=== PATIENT | female | born 1965 | race Caucasian/White ===

== ENCOUNTER → 2017-01-04 | Outpatient (CLI) | payer OTHER ==
[~2017-01-04] MED LIST: AMLO-110 PO; ASPCH81X PO; ATOR-54 PO; BND25 PO; CHOL20007 PO; DILT120C68 PO; DIPH25TA24 PO; EPP3/2 IM; ERGO500037 PO; FLM4 PO; HYDR-3419 PO; HYDR-5688 PO; HYDR12.55 PO; OXYC-57 PO; POTA1TAB97 PO; RANI150T3 PO; VITAMIN D2 PO; ZNTT/150 PO
[2017-01-04 18:54] LABS: BLOOD UREA NITROGEN 19 mg/dl (7-18); BUN/CREATININE RATIO 20.2 (10-20); CALCIUM 8.5 mg/dl (8.5-10.1); CARBON DIOXIDE 27 mmol/L (21-32); CHLORIDE 104 mmol/L (98-107); CREATININE 0.96 mg/dl (0.60-1.20); GLUCOSE 135 mg/dl (70-99); SODIUM 142 mmol/L (136-145)
[2017-01-04 18:55] LABS: PHOSPHORUS 2.6 mg/dl (2.5-4.9); URIC ACID 5.1 mg/dl (2.6-7.2)
== END | disposition home or self-care (01) ==
LOC: C.LABPVFM 15:27
PROVIDERS: ATTEND Internal Medicine Nephrology
DX: N20.0 Calculus of kidney (principal)

== ENCOUNTER → 2017-03-02 | Outpatient (CLI) | payer OTHER ==
[~2017-03-02] MED LIST changes: -BND25 PO; +DIPH25CA5 PO
[2017-03-02 18:40] LABS: BLOOD UREA NITROGEN 19 mg/dl (7-18); BUN/CREATININE RATIO 25.2 (10-20); CARBON DIOXIDE 33 mmol/L (21-32); CHLORIDE 101 mmol/L (98-107); CREATININE 0.75 mg/dl (0.60-1.20); GLUCOSE 104 mg/dl (70-99); MAGNESIUM 2.2 mg/dl (1.8-2.4); POTASSIUM 3.1 mmol/L (3.5-5.1); SODIUM 140 mmol/L (136-145)
[2017-03-02 18:44] LABS: CALCIUM 9.3 mg/dl (8.5-10.1)
== END | disposition home or self-care (01) ==
LOC: C.LABPVFM 11:04
PROVIDERS: ATTEND Nurse Practitioner Family
DX: E87.6 Hypokalemia (principal); R25.2 Cramp and spasm

== ENCOUNTER → 2017-05-17 | Outpatient (CLI) | payer OTHER ==
[~2017-05-17] MED LIST changes: +BND25 PO; -DIPH25CA5 PO
[2017-05-17 17:42] LABS: BLOOD UREA NITROGEN 17 mg/dl (7-18); BUN/CREATININE RATIO 16.8 (10-20); CALCIUM 8.8 mg/dl (8.5-10.1); CARBON DIOXIDE 30 mmol/L (21-32); CHLORIDE 105 mmol/L (98-107); GLUCOSE 82 mg/dl (70-99); PHOSPHORUS 2.8 mg/dl (2.5-4.9); POTASSIUM 2.9 mmol/L (3.5-5.1); SODIUM 141 mmol/L (136-145)
== END | disposition home or self-care (01) ==
LOC: C.LABPVFM 15:24
PROVIDERS: ATTEND Internal Medicine Nephrology
DX: E55.9 Vitamin D deficiency, unspecified (principal); Q61.3 Polycystic kidney, unspecified

== ENCOUNTER → 2017-05-29 | Outpatient (CLI) | payer OTHER | END | disposition home or self-care (01) | LOC: C.LABSPEC 16:59 | PROVIDERS: ATTEND Urology | DX: N39.3 Stress incontinence (female) (male) (principal) ==

== ENCOUNTER → 2017-05-29 | Outpatient (CLI) | payer OTHER ==
--- NOTE | 2017-05-29 16:02 | DIAGNOSTIC IMAGING REPORT ---
KUB CLINICAL HISTORY: Stress incontinence. COMPARISON STUDY: CT of the abdomen and pelvis April 26, 2016 and May 22, 2017. FINDINGS: A 9 mm calcification within the midpole of the right kidney could reflect a calculus or cortical calcification. This is unchanged. There is a 7 mm left ureteropelvic junction calculus which is similar in position to CT of May 22, 2017. There has been slight migration of a 6 mm proximal left ureteral calculus. Pelvic calcifications likely reflect phleboliths although distal ureteral calculi could appear similar. There are several punctate bilateral renal calculi. IMPRESSION: 1. No change in position of a 7 mm left ureteropelvic junction calculus. Slight migration of a 6 cm proximal left ureteral calculus since CT of May 22, 2017. 2. 9 mm right renal calcification could reflect a calculus or cortical calcification. Bilateral nephrolithiasis. 3. Pelvic calcifications which likely reflect phleboliths. Electronically signed by: Sheldon Gunn M.D. 05/29/2017 4:00 PM Dictated Date/Time: 05/29/2017 3:57 PM
== END | disposition home or self-care (01) ==
LOC: C.RAD 14:52
PROVIDERS: ATTEND Urology
DX: N39.3 Stress incontinence (female) (male) (principal); N20.0 Calculus of kidney; N20.1 Calculus of ureter

== ENCOUNTER → 2017-06-01 | Outpatient (CLI) | payer OTHER ==
[~2017-06-01] MED LIST changes: -DILT120C68 PO; -RANI150T3 PO
--- NOTE | 2017-06-01 14:42 | DIAGNOSTIC IMAGING REPORT ---
CHEST 2 VIEWS ROUTINE CLINICAL HISTORY: 51 years-old Female presenting with nephrolithiasis. TECHNIQUE: PA and lateral views of the chest were obtained. COMPARISON: None. FINDINGS: Cardiomediastinal silhouette normal. Lungs and pleural spaces clear. Osseous structures and upper abdomen normal. IMPRESSION: 1. No acute cardiopulmonary disease. Electronically signed by: Gunnar Suarez M.D. 06/01/2017 2:41 PM Dictated Date/Time: 06/01/2017 2:40 PM
--- NOTE | 2017-06-01 14:45 | DIAGNOSTIC IMAGING REPORT ---
KUB CLINICAL HISTORY: 51 years-old Female presenting with nephrolithiasis. TECHNIQUE: Single supine view of the abdomen was obtained. COMPARISON: 05/29/[address] from 05/22/2017. FINDINGS: Multiple calcifications project over the bilateral kidneys, the largest on the right measuring 9 mm and on the left measuring 3 mm. Additional calcifications along the course of the left ureter. Multiple phleboliths also noted. Nonobstructive bowel gas pattern. Osseous structures normal. IMPRESSION: 1. Bilateral nephrolithiasis with left ureteral calculi. This is similar to recent CT. Electronically signed by: Gunnar Suarez M.D. 06/01/2017 2:44 PM Dictated Date/Time: 06/01/2017 2:41 PM
== END | disposition home or self-care (01) ==
LOC: C.RAD1850 14:21
PROVIDERS: ATTEND Urology
DX: N39.3 Stress incontinence (female) (male) (principal); N20.0 Calculus of kidney

== ENCOUNTER → 2017-06-09 | Day surgery (SDC) | payer OTHER ==
[2017-05-31 14:53] VITALS: Ht 154.9 cm; Wt 90.9 kg
[~2017-06-09] VITALS: Ht 154.9 cm; Wt 90.9 kg
[~2017-06-09] MED LIST changes: +ATROPINE SULFATE 0.1 MG/ML 5ML SYR IV PRN; +CIPROFLOXACIN 400MG / D5W IV SCH; +DEXAMETHASONE SOD INJ 4 MG/ML VIAL ONE; +EpHEDrine SULFATE INJ 50 MG/ML AMP IV PRN; +FENTANYL CITRATE INJ 50 MCG/1 ML 2 ML VIAL ONE; +FLUMAZENIL 0.1 MG/1 ML 10 ML VIAL IV PRN; +HYDROmorphone INJ 2 MG/ML SYR/VIAL IV PRN; +LABETALOL HCL IV 5 MG/ML 20ML IV PRN; +LACTATED RINGER'S 1000ML 1,000 ML IV SCH; +LIDOCAINE HCL 2% 2 ML VIAL (20MG/ML) ONE; +MEPERIDINE HCL 25 MG/ML CARP IV PRN; +MIDAZOLAM HCL 1 MG/ML 2ML VIAL ONE; +NALOXONE HCL 0.4 MG/1 ML VIAL/CARP IV PRN; +ONDANSETRON INJ 2 MG/ML 2 ML VIAL IV PRN; +ONDANSETRON INJ 2 MG/ML 2 ML VIAL ONE; +OXYCODONE/ACETAMINOPHEN 5-325 TAB PO PRN; +PHENYLEPHRINE 100MCG/ML 5ML SYR IV PRN; +PROPOFOL IV EMULSION 10 MG/ML 20 ML VIAL IV ONE
--- NOTE | 2017-06-09 09:37 | DIAGNOSTIC IMAGING REPORT ---
KUB CLINICAL HISTORY: 51 years-old Female presenting with STONES. TECHNIQUE: Single supine view of the abdomen was obtained. COMPARISON: 06/01/2017. FINDINGS: Stool mildly degrades evaluation for renal calculus. Previously noted calculus at the interpolar to lower pole of the left kidney unchanged. Dominant right lower pole calculus also unchanged. Previously noted obstructing calculus at the left ureteropelvic junction noted at the L3-[address] from 05/22/2017 remains at L4-5 unchanged from most recent radiograph. Multiple pelvic phleboliths again noted. Nonobstructive bowel gas pattern. IMPRESSION: 1. No change in position of the left ureteral calculus and bilateral renal calculi from most recent radiograph on 06/01/2017. Electronically signed by: Gunnar Suarez M.D. 06/09/2017 9:36 AM Dictated Date/Time: 06/09/2017 9:32 AM
--- NOTE | 2017-06-09 11:32 | History & Physical Bridge Note ---
H&P Re-Evaluation Bridge Note: I have examined the patient, reviewed the History & Physical and in the interval since the performance of the History & Physical I have noted the following changes of clinical significance: No changes noted
--- NOTE | 2017-06-09 12:05 | [facility] Operative Report ---
Operative Report Operative Date Jun 09, 2017. Pre-Operative Diagnosis LEFT URETERAL STONE Post-Operative Diagnosis SAME Procedure(s) Performed LEFT ESWL Surgeon LEANN Steel Pourer Helper Surgeon(s) NONE Estimated Blood Loss NONE Findings LEFT URETERAL STONE Specimens NONE Drains NONE Anesthesia GENERAL Complication(s) None Disposition Recovery Room / PACU Indications LEFT URETERAL STONE FOR ESWL Description of Procedure Patient was identified in the preoperative holding area, appropriate informed consent was reviewed and completed and the patient was transported to the operating suite. Upon arrival appropriate preoperative antibiotics were administered and general anesthesia induced. The patient was placed in supine position and the stone was localized under fluoroscopy. A total of [__3000_] shocks were delivered to the stone. There appeared to be good fragmentation of the stone. Details of this procedure can be found on the [facility] information sheet. At the conclusion of the case the patient was extubated and taken to the PACU in stable condition. There were no complications. I attest to the content of the Intraoperative Record and any orders documented therein. Any exceptions are noted below.
--- NOTE | 2017-06-09 12:07 | Discharge Instructions-SurgCtr ---
Discharge Instructions Date of Service Jun 09, 2017. Visit Reason for Visit: Stones Discharge Discharge Diagnosis / Problem: LEFT STONE Discharge Goals Goal(s): Therapeutic intervention Medications Stopped Medications Name(s): asa 81mg, last dose over 1 week ago Activity Recommendations Activity Limitations: resume your previous activity (TAKE IT EASY TODAY) Anesthesia . Post Anesthesia Instructions: If you have had General Anesthesia or IV Sedation: * Do not drive today. * Resume driving when surgeon permits. * Do not make important decisions or sign legal documents today. * Call surgeon for: 1. Temperature elevations greater than 101 degrees F. 2. Uncontrollable pain. 3. Excessive bleeding. 4. Persistent nausea and vomiting. 5. Medication intolerance (nausea, vomiting or rash). * For nausea and vomiting use only clear liquids such as: tea, soda, bouillon until nausea subsides, then gradually increase diet as tolerated. * If you have any concerns or questions, call your surgeon's office. If physician is unavailable and it is an emergency, call 911 or go to the nearest emergency room. . Instructions / Follow-Up Instructions / Follow-Up MEDICATIONS: Resume previous medications unless instructed otherwise by your surgeon. Resume pre-ESWL medication except for aspirin, coumadin or other blood thinners. __ Toradol 10 mg every 6 hours for initial pain. __ Lortab 5 mg 1-2 every 4 hours for pain. _X_ Percocet 5 mg 1-2 every 4 hours for pain. __ Macrodantin 50 mg x 3 a day. __ Flomax 1 tab daily one half (1/2) hour after supper. SPECIAL CARE INSTRUCTIONS: 1. Get KUB (x-ray) _X_ day before or day of office visit and bring x-ray to office __ get x-ray 2 days before and tell office you are getting x-rays when you call for the appointment. 2. Strain ALL urine. 3. Please call if you have a fever, chills, severe pain, or constant dribbling of urine. 4. Office phone number . FOLLOW UP VISIT: Please call the office to schedule a follow-up appointment at . Diet Recommendations Home Diet: resume previous diet Procedures Procedures Performed: LEFT ESWL Pending Studies Studies pending at discharge: no Medical Emergencies . Who to Call and When: Medical Emergencies: If at any time you feel your situation is an emergency, please call 911 immediately. . Non-Emergent Contact Non-Emergency issues call your: Urologist Call Non-Emergent contact if: temperature is above 101.5, your pain is not controlled . . "Provider Documentation" section prepared by Srinivasa Ayala. . [place] Drug Monitoring Program Search Results: patient reviewed within database
[2017-06-09] MEDS: FENTANYL CITRATE INJ 50 MCG/1 ML 2 ML VIAL IV PRN ×3 (13:03→13:32)
[2017-06-09 13:54] VITALS: TEMP 36.6
--- NOTE | 2017-06-09 14:11 | Anesthesia Progress Nt - [facility] ---
Anesthesia Post Op Note Date & Time Jun 09, 2017 at 14:11 Vital Signs Pain Intensity: 4 Vital Signs Past 12 Hours Date Time Temp Pulse Resp B/P (MAP) Pulse Ox O2 Delivery O2 Flow Rate FiO2 06/09/17 13:49 65 21 97 06/09/17 13:49 65 21 06/09/17 13:48 36.6 65 20 133/83 96 Room Air 06/09/17 13:46 133/83 06/09/17 13:44 70 16 06/09/17 13:44 72 16 98 06/09/17 13:41 124/77 06/09/17 13:39 68 13 06/09/17 13:39 67 13 98 06/09/17 13:36 130/79 06/09/17 13:34 63 11 99 06/09/17 13:34 63 11 06/09/17 13:31 130/78 06/09/17 13:29 64 7 06/09/17 13:29 63 7 99 06/09/17 13:26 113/78 06/09/17 13:24 65 12 06/09/17 13:24 65 12 99 06/09/17 13:21 118/83 06/09/17 13:19 64 18 100 06/09/17 13:19 64 18 06/09/17 13:16 112/77 06/09/17 13:14 64 12 06/09/17 13:14 64 12 100 06/09/17 13:11 113/74 06/09/17 13:09 63 13 06/09/17 13:09 63 13 99 06/09/17 13:06 127/81 06/09/17 13:04 65 7 06/09/17 13:04 64 7 99 06/09/17 13:01 118/86 06/09/17 12:59 66 17 99 06/09/17 12:59 66 17 06/09/17 12:56 144/85 06/09/17 12:54 68 12 100 06/09/17 12:54 68 12 06/09/17 12:51 135/79 06/09/17 12:50 138/121 06/09/17 12:49 72 100 06/09/17 12:49 36.4 72 16 135/79 99 Mask 4 06/09/17 12:49 72 06/09/17 10:02 36.6 67 16 151/101 (594) 97 Room Air Notes Mental Status: alert / awake / arousable, participated in evaluation Pt Amnestic to Procedure: Yes Nausea / Vomiting: adequately controlled Pain: adequately controlled Airway Patency, RR, SpO2: stable & adequate BP & HR: stable & adequate Hydration State: stable & adequate Anesthetic Complications: no major complications apparent
[2017-06-09 14:23] VITALS: BP 141/91; PULSE 66; O2SAT 95
== END | disposition home or self-care (01) ==
LOC: X.SURG 09:47
PROVIDERS: ATTEND Urology
DX: N20.1 Calculus of ureter (principal); N13.5 Crossing vessel and stricture of ureter without hydronephrosis; N39.3 Stress incontinence (female) (male); I10 Essential (primary) hypertension; Z87.442 Personal history of urinary calculi; E66.9 Obesity, unspecified; Z90.710 Acquired absence of both cervix and uterus; Z90.89 Acquired absence of other organs; Z82.49 Family history of ischemic heart disease and other diseases of the circulatory system; Z80.3 Family history of malignant neoplasm of breast; Z87.891 Personal history of nicotine dependence; Z79.82 Long term (current) use of aspirin; G47.33 Obstructive sleep apnea (adult) (pediatric); K21.9 Gastro-esophageal reflux disease without esophagitis

== ENCOUNTER → 2017-06-20 | Outpatient (CLI) | payer OTHER ==
[~2017-06-20] MED LIST changes: -ATROPINE SULFATE 0.1 MG/ML 5ML SYR IV PRN; -CIPROFLOXACIN 400MG / D5W IV SCH; -DEXAMETHASONE SOD INJ 4 MG/ML VIAL ONE; -EpHEDrine SULFATE INJ 50 MG/ML AMP IV PRN; -FENTANYL CITRATE INJ 50 MCG/1 ML 2 ML VIAL ONE; -FLM4 PO; -FLUMAZENIL 0.1 MG/1 ML 10 ML VIAL IV PRN; -HYDROmorphone INJ 2 MG/ML SYR/VIAL IV PRN; -LABETALOL HCL IV 5 MG/ML 20ML IV PRN; -LACTATED RINGER'S 1000ML 1,000 ML IV SCH; -LIDOCAINE HCL 2% 2 ML VIAL (20MG/ML) ONE; -MEPERIDINE HCL 25 MG/ML CARP IV PRN; -MIDAZOLAM HCL 1 MG/ML 2ML VIAL ONE; -NALOXONE HCL 0.4 MG/1 ML VIAL/CARP IV PRN; -ONDANSETRON INJ 2 MG/ML 2 ML VIAL IV PRN; -ONDANSETRON INJ 2 MG/ML 2 ML VIAL ONE; -OXYCODONE/ACETAMINOPHEN 5-325 TAB PO PRN; -PHENYLEPHRINE 100MCG/ML 5ML SYR IV PRN; -PROPOFOL IV EMULSION 10 MG/ML 20 ML VIAL IV ONE
--- NOTE | 2017-06-20 10:35 | DIAGNOSTIC IMAGING REPORT ---
KUB HISTORY: N39.3 Stress incontinence, [id number] COMPARISON: KUB 06/01/2017. FINDINGS: The bowel gas pattern is unremarkable. There are no dilated loops of small bowel to suggest an obstruction. The mid left ureteral stone is no longer visualized and may have passed in the interval. Bilateral renal calculi, unchanged. Dominant stone within the right kidney measures 9 mm. Calcifications in the deep pelvis remain stable and likely represent phleboliths. Oval-shaped density overlying the upper pole of the right kidney likely represents a pill. No pneumoperitoneum or pneumatosis. IMPRESSION: 1. Stable bilateral nephrolithiasis. 2. The left ureteral stone seen on the prior study is no longer visualized and may have passed in the interval. Electronically signed by: Mian Birmingham M.D. 06/20/2017 10:34 AM Dictated Date/Time: 06/20/2017 10:31 AM
== END | disposition home or self-care (01) ==
LOC: C.RAD1850 09:58
PROVIDERS: ATTEND Urology
DX: N20.0 Calculus of kidney (principal)

== ENCOUNTER → 2017-07-05 | Outpatient (CLI) | payer OTHER | END | disposition home or self-care (01) | LOC: C.LABSPEC 10:52 | PROVIDERS: ATTEND Urology | DX: N20.0 Calculus of kidney (principal) ==

== ENCOUNTER 2017-07-13 14:50 | Emergency (ER) | payer OTHER ==
[~2017-07-13] VITALS: Ht 154.9 cm; Wt 92.4 kg
[~2017-07-13 14:50] MED LIST changes: -BND25 PO; -CHOL20007 PO; -HYDR-3419 PO; -HYDR-5688 PO; -OXYC-57 PO; -VITAMIN D2 PO
[2017-07-13 14:53] VITALS: TEMP 36.8; Ht 154.9 cm; Wt 92.4 kg
[2017-07-13] MEDS ORDERED: KETOROLAC TROMETHAMINE 30 MG/ML VIAL IV STA (15:12)
[2017-07-13] MEDS ORDERED: SODIUM CHLORIDE 0.9% 1000ML 1,000 ML IV ONE (15:15)
[2017-07-13 15:50] LABS: BASO % 0.2 %; BASO ABS # 0.02 K/uL (0-0.2); COMPLETE YES; EOS % 0.7 %; HEMATOCRIT 36.7 % (37-47); IG% 0.1 %; LYMPH % 15.9 %; LYMPH ABS # 1.28 K/uL (1.2-3.4); MEAN CELL VOLUME 83.8 fL (80-100); MEAN CORPUSCULAR HEMOGLOBIN 29.5 pg (25-34); MEAN CORPUSCULAR HGB CONC 35.1 g/dl (32-36); MEAN PLATELET VOLUME 9.4 fL (7.4-10.4); MONO % 10.2 %; NEUT % 72.9 %; PLATELET COUNT 193 K/uL (130-400); RED BLOOD COUNT 4.38 M/uL (4.2-5.4); WHITE BLOOD COUNT 8.03 K/uL (4.8-10.8)
--- NOTE | 2017-07-13 16:03 | DIAGNOSTIC IMAGING REPORT ---
RIGHT WRIST MIN 3 VIEWS ROUTINE HISTORY: 51 years-old Female right wrist pain. no known trauma Right COMPARISON: None available TECHNIQUE: 3 views of the right wrist FINDINGS: 1.1 x 0.6 cm ossification is noted along the medial volar aspect of the pisiform with mild associated soft tissue swelling. Additionally, there is a 2 mm punctate corticated ossification adjacent to the volar aspect of the distal radius which may reflect accessory ossicle or remote avulsion injury. Mild degenerative changes are noted about the wrist and within the first carpometacarpal joint. IMPRESSION: 1.1 x 0.6 cm calcific density focus adjacent to the medial volar aspect of the pisiform is noted with associated soft tissue swelling, suspicious for a chip fracture or avulsion injury. Correlate with point tenderness. The above report was generated using voice recognition software. It may contain grammatical, syntax or spelling errors. Electronically signed by: Angel Luis Couch M.D. 07/13/2017 4:01 PM Dictated Date/Time: 07/13/2017 3:58 PM
[2017-07-13 16:17] LABS: BUN/CREATININE RATIO 13.9 (10-20); CALCIUM 8.7 mg/dl (8.5-10.1); CREATININE 0.94 mg/dl (0.60-1.20); POTASSIUM 3.1 mmol/L (3.5-5.1); URIC ACID 4.9 mg/dl (2.6-7.2)
[2017-07-13 16:20] LABS: ALB/GLOB RATIO 1.1 (0.9-2)
[2017-07-13 16:44] LABS: LYME DISEASE AB IGG NEG (NEG); LYME DISEASE AB IGM NEG (NEG)
[2017-07-13] MEDS ORDERED: HYDR-5688 PO (17:07)
[2017-07-13 17:33] VITALS: BP 147/91; PULSE 81; O2SAT 96
--- NOTE | 2017-07-14 13:49 | EMERGENCY ROOM VISIT NOTE ---
History First contact with patient: 14:59 Chief Complaint: HAND PAIN/INJURY Stated Complaint: GOUT History of Present Illness The patient is a 51 year old female who presents to the Emergency Room with complaints of right wrist pain for the past one day. The patient does not recall injury or trauma. She does not have recent fall or change in activity. Her pain is primarily along the distal end of the ulna, and states that she essentially woke up with the discomfort. There is some redness in this area according to the patient, who also reports a history of gout in the past. She has not had fever or chills. She is able to open and close the hand. She was at work today, and her symptoms worsened with lifting and moving things, prompting her presentation to the department. She has not taken anything over- the-counter for her symptoms, and rates her pain as 7/10. Review of Systems More than 10 systems were reviewed and otherwise negative with the exception of history of present illness. Past Medical/Surgical History Medical Problems: (1) Allergic reaction (2) Calculus Of Ureter (3) Fibromyalgia (4) HTN (hypertension) (5) Migraine Family History No pertinent family history Social History Smoking Status: Former Smoker Drug Use: none Marital Status: Housing Status: lives with family Occupation Status: employed Current/Historical Medications Scheduled Amlodipine (Norvasc), 5 MG PO QAM Aspirin (Aspirin Chewable), 81 MG PO QAM Atorvastatin (Lipitor), 20 MG PO QPM Ergocalciferol (Vitamin D 02308 Unit), 50,000 UNIT PO WK Hydrochlorothiazide (Hydrochlorothiazide), 1 TAB PO QAM Potassium Chloride (K-Tab), 1 TAB PO BID Ranitidine (Zantac), 150 MG PO QAM Scheduled PRN Diphenhydramine Hcl (Benadryl), 25 MG PO UD PRN for ALLERGIC REACTION Epinephrine (Epipen), 0.3 MG IM UD PRN for ALLERGIC REACTION Hydrocodone/Acetaminophen 5MG/325MG (Hidalgo 5MG/325MG), 1 TABLET PO Q6 PRN for Pain Physical Exam Vital Signs Date Time Temp Pulse Resp B/P (MAP) Pulse Ox O2 Delivery O2 Flow Rate FiO2 07/13/17 17:33 81 20 147/91 96 07/13/17 16:30 78 18 158/97 96 Room Air 07/13/17 14:53 36.8 99 16 163/101 93 Room Air Pain Rating (0-10): 4.0 Physical Exam VITALS: Vitals are noted on the nurse's note and reviewed by myself. Vital signs stable. GENERAL: Well-developed, well-nourished, white female, who is in no acute distress and resting comfortably. Patient is cooperative with the examination. HEART: Regular rate and rhythm without murmurs gallops or rubs. LUNGS: Clear to auscultation bilaterally without wheezes, rales or rhonchi. No retractions or accessory muscle use. MUSCULOSKELETAL: Tenderness is appreciated along the distal end of the ulna at the wrist on the right. There is some mild ecchymosis in this region. The patient is able to flex and extend at the wrist. Supply Chain Assistant strength is 5/5. No snuffbox tenderness. No tenderness of the elbow. NEURO: Patient was alert and oriented to person place and time. CN II through XII grossly intact. Medical Decision & Procedures ER Provider Diagnostic Interpretation: RIGHT WRIST MIN 3 VIEWS ROUTINE HISTORY: 51 years-old Female right wrist pain. no known trauma Right COMPARISON: None available TECHNIQUE: 3 views of the right wrist FINDINGS: 1.1 x 0.6 cm ossification is noted along the medial volar aspect of the pisiform with mild associated soft tissue swelling. Additionally, there is a 2 mm punctate corticated ossification adjacent to the volar aspect of the distal radius which may reflect accessory ossicle or remote avulsion injury. Mild degenerative changes are noted about the wrist and within the first carpometacarpal joint. IMPRESSION: 1.1 x 0.6 cm calcific density focus adjacent to the medial volar aspect of the pisiform is noted with associated soft tissue swelling, suspicious for a chip fracture or avulsion injury. Correlate with point tenderness. Laboratory Results 07/13/17 15:30 Red Blood Count 4.38, Mean Corpuscular Volume 83.8, Mean Corpuscular Hemoglobin 29.5, Mean Corpuscular Hemoglobin Concent 35.1, Mean Platelet Volume 9.4, Neutrophils (%) (Auto) 72.9, Lymphocytes (%) (Auto) 15.9, Monocytes (%) (Auto) 10.2, Eosinophils (%) (Auto) 0.7, Basophils (%) (Auto) 0.2, Neutrophils # (Auto ) 5.84, Lymphocytes # (Auto) 1.28, Monocytes # (Auto) 0.82, Eosinophils # (Auto ) 0.06, Basophils # (Auto) 0.02 07/13/17 15:30 Test 07/13/17 15:30 White Blood Count 8.03 K/uL (4.8-10.8) Red Blood Count 4.38 M/uL (4.2-5.4) Hemoglobin 12.9 g/dL (12.0-16.0) Hematocrit 36.7 % (37-47) Mean Corpuscular Volume 83.8 fL (80-100) Mean Corpuscular Hemoglobin 29.5 pg (25-34) Mean Corpuscular Hemoglobin Concent 35.1 g/dl (32-36) Platelet Count 193 K/uL (130-400) Mean Platelet Volume 9.4 fL (7.4-10.4) Neutrophils (%) (Auto) 72.9 % Lymphocytes (%) (Auto) 15.9 % Monocytes (%) (Auto) 10.2 % Eosinophils (%) (Auto) 0.7 % Basophils (%) (Auto) 0.2 % Neutrophils # (Auto) 5.84 K/uL (1.4-6.5) Lymphocytes # (Auto) 1.28 K/uL (1.2-3.4) Monocytes # (Auto) 0.82 K/uL (0.11-0.59) Eosinophils # (Auto) 0.06 K/uL (0-0.5) Basophils # (Auto) 0.02 K/uL (0-0.2) RDW Standard Deviation 41.2 fL (36.4-46.3) RDW Coefficient of Variation 13.7 % (11.5-14.5) Immature Granulocyte % (Auto) 0.1 % Immature Granulocyte # (Auto) 0.01 K/uL (0.00-0.02) Anion Gap 5.0 mmol/L (3-11) Est Creatinine Clear Calc Drug Dose 71.7 ml/min Estimated GFR () 80.3 Estimated GFR (Non- 69.3 BUN/Creatinine Ratio 13.9 (10-20) Uric Acid 4.9 mg/dl (2.6-7.2) Calcium Level 8.7 mg/dl (8.5-10.1) Total Bilirubin 1.2 mg/dl (0.2-1) Aspartate Amino Transf (AST/SGOT) 15 U/L (15-37) Alanine Aminotransferase (ALT/SGPT) 28 U/L (12-78) Alkaline Phosphatase 89 U/L (45-117) Total Protein 6.8 gm/dl (6.4-8.2) Albumin 3.6 gm/dl (3.4-5.0) Globulin 3.2 gm/dl (2.5-4.0) Albumin/Globulin Ratio 1.1 (0.9-2) Lyme Disease IgG Antibody NEG (NEG) Lyme Disease IgM Antibody NEG (NEG) Medications Administered Medications (Trade) Dose Ordered Sig/Maricel Route Start Time Stop Time Status Last Admin Dose Admin Sodium Chloride 1,000 ml @ 999 mls/hr Q1H1M ONCE IV 07/13/17 15:15 07/13/17 16:15 DC 07/13/17 15:15 999 MLS/HR Ketorolac Tromethamine (Toradol Inj) 30 mg NOW STAT IV 07/13/17 15:12 07/13/17 15:14 DC 07/13/17 15:28 30 MG ED Course Physical exam and history were performed. Nursing notes, EMR, and Medication List were personally reviewed. Patient appears to have pain along the medial aspect of her right wrist. She does not recall injury or trauma and does report a history of gout. IV access was established and labs were obtained. She was hydrated and medicated as above. X-rays were performed. The patient does not have a significantly elevated white blood cell count, gross anemia, bandemia, or significant electrolyte imbalance. Lyme and uric acid are both negative. Her x-ray shows a possible pisiform fracture, and based on her examination this could be a true finding as she is tender roughly in this area. I'm not sure of the mechanism that may have caused this injury, and the patient herself is unsure herself. Regardless she will be placed in a splint and given instructions to follow with orthopedics. She was given further discharge instructions as below, and otherwise invited back to the ER with any new, worsening, or concerning symptoms. The chart was completed utilizing X[employer] Voice Recognition Software. Grammatical errors, random word insertions, pronoun errors, and incomplete sentences are an occasional consequence of this system due to software limitations, ambient noise, and hardware issues. Any formal questions or concerns about the content, text, or information contained within the body of this dictation should be directly addressed to the provider for clarification. . Medical Decision Differential diagnosis includes, but is not limited to: Sprain, strain, fracture , dislocation, subluxation, contusion, infection, gout, Lyme, and others Blood Pressure Screening Blood pressure disposition: Elevated BP felt to be situational Impression Primary Impression: Wrist pain, right Additional Impression: Closed fracture of pisiform Departure Information Dispostion Home / Self-Care Condition FAIR Prescriptions Hydrocodone/Acetaminophen 5MG/325MG (Hidalgo 5MG/325MG) Tab 1 TABLET PO Q6 Y for Pain, #12 TAB For Initial Treatment Prov: Kuldip Hernández PA-C 07/13/17 Referrals Todd Ariza MD Forms HOME CARE DOCUMENTATION FORM, IMPORTANT VISIT INFORMATION Patient Instructions My [facility] Additional Instructions You were seen and evaluated today on an emergency basis only. This is not a substitute for, or an effort to provide, complete comprehensive medical care. It is not possible to recognize and treat all injuries or illnesses in a single emergency department visit. For this reason it is recommended that you followup with [facility], Dr. Ariza's office, for ongoing care and evaluation. For baseline pain relief you may alternate ibuprofen and acetaminophen every 4 hours for pain control. Take 600 mg ibuprofen (Advil) and then 4 hours later take 1000 mg acetaminophen (Tylenol). Do not take more than 3000 mg acetaminophen in a single day. H[place]go (hydrocodone/acetaminophen) 5/325 mg ONE every 6 hours as needed for worsening breakthrough pain. Do not drink or drive on [place]. This medication will likely make you tired. Do not take Hidalgo and Tylenol at the same time as both contain acetaminophen. Hidalgo may cause constipation. You may wish to take an [id number] stool softener like Colace if this occurs. You are welcome to return to the emergency department anytime with new, worsening, or concerning symptoms. Problem Qualifiers
[2017-07-28] MEDS ORDERED: HYDR-3419 PO (08:42)
[2017-08-11] MEDS ORDERED: CHOL20007 PO (10:38)
[2017-08-11] MEDS ORDERED: BND25 PO (10:40)
[2017-08-18] MEDS ORDERED: OXYC-57 PO (09:23)
== END 2017-07-13 17:39 | disposition home or self-care (01) ==
LOC: C.EDB 14:52 → C.EDC 17:39
DX: M25.531 Pain in right wrist (principal); S62.164A Nondisplaced fracture of pisiform, right wrist, initial encounter for closed fracture; I10 Essential (primary) hypertension; M79.7 Fibromyalgia; Z79.82 Long term (current) use of aspirin; Z79.899 Other long term (current) drug therapy; Z87.442 Personal history of urinary calculi; Z87.898 Personal history of other specified conditions

== ENCOUNTER → 2017-07-18 | Outpatient (CLI) | payer OTHER ==
[~2017-07-18] MED LIST changes: +BND25 PO; +CHOL20007 PO; +HYDR-3419 PO; +HYDR-5688 PO; +OXYC-57 PO
[2017-07-18 16:28] LABS: BASO % 0.2 %; BASO ABS # 0.01 K/uL (0-0.2); COMPLETE YES; EOS % 2.6 %; HEMATOCRIT 36.3 % (37-47); IG% 0.2 %; LYMPH % 28.2 %; LYMPH ABS # 1.83 K/uL (1.2-3.4); MEAN CELL VOLUME 84.4 fL (80-100); MEAN CORPUSCULAR HEMOGLOBIN 29.5 pg (25-34); MEAN PLATELET VOLUME 9.1 fL (7.4-10.4); MONO % 7.7 %; NEUT % 61.1 %; PLATELET COUNT 200 K/uL (130-400)
[2017-07-18 16:53] LABS: BLOOD UREA NITROGEN 14 mg/dl (7-18); BUN/CREATININE RATIO 20.1 (10-20); CALCIUM 8.8 mg/dl (8.5-10.1); CARBON DIOXIDE 28 mmol/L (21-32); CHLORIDE 106 mmol/L (98-107); CREATININE 0.69 mg/dl (0.60-1.20); GLUCOSE 78 mg/dl (70-99); MAGNESIUM 2.2 mg/dl (1.8-2.4); PHOSPHORUS 3.1 mg/dl (2.5-4.9); POTASSIUM 3.6 mmol/L (3.5-5.1); SODIUM 140 mmol/L (136-145)
== END | disposition home or self-care (01) ==
LOC: C.LAB 15:58
PROVIDERS: ATTEND Urology
DX: Q61.3 Polycystic kidney, unspecified (principal); N20.0 Calculus of kidney

== ENCOUNTER → 2017-07-21 | Outpatient (CLI) | payer OTHER ==
[2017-07-23 20:04] LABS: REFERENCE QUEST TEST REPORT
[2017-07-26 02:22] LABS: CLAM CLASS 0; CLAM IGE <0.10 KU/L; CODFISH CLASS 0; CRAB CLASS 0; CRAB IGE <0.10 KU/L; LOBSTER CLASS 0; LOBSTER IGE <0.10 KU/L; SHRIMP CLASS 0; WHITEFISH CLASS 0; WHITEFISH IGE <0.10 kU/L (<0.35)
== END | disposition home or self-care (01) ==
LOC: C.LAB1850 09:07
PROVIDERS: ATTEND Internal Medicine Pulmonary Disease
DX: Z91.018 Allergy to other foods (principal)

== ENCOUNTER → 2017-07-27 | Outpatient (CLI) | payer OTHER ==
--- NOTE | 2017-07-27 17:18 | DIAGNOSTIC IMAGING REPORT ---
KUB CLINICAL HISTORY: N20.0 Nephrolithiasis COMPARISON STUDY: 06/20/2017 FINDINGS: There are bilateral renal calculi. The dominant 8 mm mid pole right renal calculus remains unchanged. There is no pathologic bowel dilatation. There are multiple pelvic basin calcifications, in similar orientation the prior study, therefore favoring phleboliths. There is a left upper quadrant calcification, possibly splenic. IMPRESSION: Bilateral nephrolithiasis similar to the preceding study Electronically signed by: Cody Santos M.D. 07/27/2017 5:17 PM Dictated Date/Time: 07/27/2017 5:16 PM
== END | disposition home or self-care (01) ==
LOC: C.RAD 17:00
PROVIDERS: ATTEND Urology
DX: N20.0 Calculus of kidney (principal)

== ENCOUNTER → 2017-07-28 | Day surgery (SDC) | payer OTHER ==
[2017-07-07 10:31] VITALS: Ht 154.9 cm; Wt 90.9 kg
[~2017-07-28] VITALS: Ht 154.9 cm; Wt 90.9 kg
[~2017-07-28] MED LIST changes: +ATROPINE SULFATE 0.1 MG/ML 5ML SYR IV PRN; +CIPROFLOXACIN 400MG / D5W IV SCH; +DEXAMETHASONE SOD INJ 4 MG/ML VIAL ONE; +EpHEDrine SULFATE INJ 50 MG/ML AMP IV PRN; +FENTANYL CITRATE INJ 50 MCG/1 ML 2 ML VIAL IV PRN; +FENTANYL CITRATE INJ 50 MCG/1 ML 2 ML VIAL ONE; +LACTATED RINGER'S 1000ML 1,000 ML IV SCH; +LIDOCAINE HCL 2% 2 ML VIAL (20MG/ML) ONE; +MIDAZOLAM HCL 1 MG/ML 2ML VIAL ONE; +ONDANSETRON INJ 2 MG/ML 2 ML VIAL ONE; +PROPOFOL IV EMULSION 10 MG/ML 20 ML VIAL IV ONE
--- NOTE | 2017-07-28 07:45 | [facility] Post Operative Brief Note ---
Immediate Operative Summary Operative Date Jul 28, 2017. Pre-Operative Diagnosis Right Renal Stone Post-Operative Diagnosis Same Procedure(s) Performed Right Extracorporeal Shock Wave Lithotripsy Surgeon Dr. Preson Costume Rental Clerk Surgeon(s) None Estimated Blood Loss 0 mL Findings stone appeared to spread out Specimens None
--- NOTE | 2017-07-28 07:58 | Discharge Instructions-SurgCtr ---
Discharge Instructions Date of Service Jul 28, 2017. Visit Reason for Visit: Stones Discharge Discharge Diagnosis / Problem: post op r eswl Discharge Goals Goal(s): Decrease discomfort Medications Stopped Medications Name(s): Was told to stop ASA - has been off ASA 81 MG for over one week. Activity Recommendations Activity Limitations: resume your previous activity Anesthesia . Post Anesthesia Instructions: If you have had General Anesthesia or IV Sedation: * Do not drive today. * Resume driving when surgeon permits. * Do not make important decisions or sign legal documents today. * Call surgeon for: 1. Temperature elevations greater than 101 degrees F. 2. Uncontrollable pain. 3. Excessive bleeding. 4. Persistent nausea and vomiting. 5. Medication intolerance (nausea, vomiting or rash). * For nausea and vomiting use only clear liquids such as: tea, soda, bouillon until nausea subsides, then gradually increase diet as tolerated. * If you have any concerns or questions, call your surgeon's office. If physician is unavailable and it is an emergency, call 911 or go to the nearest emergency room. . Diet Recommendations Home Diet: resume previous diet Procedures Procedures Performed: Right Extracorporeal Shock Wave Lithotripsy Pending Studies Studies pending at discharge: no Medical Emergencies . Who to Call and When: Medical Emergencies: If at any time you feel your situation is an emergency, please call 911 immediately. . Non-Emergent Contact Non-Emergency issues call your: Urologist . . "Provider Documentation" section prepared by Galileo Person. .
[2017-07-28 08:53] VITALS: BP 140/79; PULSE 78; TEMP 36.4; O2SAT 97
--- NOTE | 2017-07-28 08:58 | Anesthesia Progress Nt - [facility] ---
Anesthesia Post Op Note Date & Time Jul 28, 2017 at 08:58 Vital Signs Pain Intensity: 0 Vital Signs Past 12 Hours Date Time Temp Pulse Resp B/P (MAP) Pulse Ox O2 Delivery O2 Flow Rate FiO2 07/28/17 08:53 36.4 78 16 140/79 (99) 97 Room Air 07/28/17 08:27 60 16 157/96 (116) 96 Room Air 07/28/17 08:16 36.4 60 18 07/28/17 08:16 58 18 156/93 98 07/28/17 08:11 58 12 125/91 100 07/28/17 08:11 58 12 07/28/17 08:06 63 12 145/98 100 07/28/17 08:06 62 12 07/28/17 08:01 63 15 145/97 100 07/28/17 08:01 62 15 07/28/17 07:56 66 18 07/28/17 07:56 66 18 142/96 100 07/28/17 07:52 130/92 07/28/17 07:52 36.6 67 16 130/92 100 Mask 6 07/28/17 06:31 36.8 65 16 152/93 (112) 97 Room Air Notes Mental Status: alert / awake / arousable, participated in evaluation Pt Amnestic to Procedure: Yes Nausea / Vomiting: adequately controlled Pain: adequately controlled Airway Patency, RR, SpO2: stable & adequate BP & HR: stable & adequate Hydration State: stable & adequate Anesthetic Complications: no major complications apparent
--- NOTE | 2017-07-28 11:02 | OPERATIVE REPORT ---
DATE OF OPERATION: 07/28/2017 PREOPERATIVE DIAGNOSIS: Right renal stone. POSTOPERATIVE DIAGNOSIS: Same. PROCEDURE PERFORMED: Right ESWL. SURGEON: Dr. Person. ANESTHESIA: General. INDICATIONS: The patient is a 51-year-old female with a history of stone disease, has previously had ESWL who has a nonobstructing right renal stone here for elective ESWL. DESCRIPTION OF THE PROCEDURE: The patient had Venodyne stockings placed, was given antibiotics, taken to the operating room and placed in supine position and given general anesthesia. The stone was visualized in 2 gar, the patient received 2500 shocks, the majority at level 5. Stone did change appearance somewhat as it was sitting in the lower pole. At the end of the procedure, the patient was transferred to the recovery room in stable condition. I attest to the content of the Intraoperative Record and any orders documented therein. Any exception s are noted below.
== END | disposition home or self-care (01) ==
LOC: X.SURG 06:08
PROVIDERS: ATTEND Urology
DX: N20.0 Calculus of kidney (principal); M79.7 Fibromyalgia; E87.6 Hypokalemia; I10 Essential (primary) hypertension; R73.9 Hyperglycemia, unspecified; E66.9 Obesity, unspecified; Q61.3 Polycystic kidney, unspecified; N39.3 Stress incontinence (female) (male); E55.9 Vitamin D deficiency, unspecified; Z79.899 Other long term (current) drug therapy

== ENCOUNTER → 2017-08-08 | Outpatient (CLI) | payer OTHER ==
[~2017-08-08] MED LIST changes: -ATROPINE SULFATE 0.1 MG/ML 5ML SYR IV PRN; -CIPROFLOXACIN 400MG / D5W IV SCH; -DEXAMETHASONE SOD INJ 4 MG/ML VIAL ONE; -EpHEDrine SULFATE INJ 50 MG/ML AMP IV PRN; -FENTANYL CITRATE INJ 50 MCG/1 ML 2 ML VIAL IV PRN; -FENTANYL CITRATE INJ 50 MCG/1 ML 2 ML VIAL ONE; -LACTATED RINGER'S 1000ML 1,000 ML IV SCH; -LIDOCAINE HCL 2% 2 ML VIAL (20MG/ML) ONE; -MIDAZOLAM HCL 1 MG/ML 2ML VIAL ONE; -ONDANSETRON INJ 2 MG/ML 2 ML VIAL ONE; -PROPOFOL IV EMULSION 10 MG/ML 20 ML VIAL IV ONE
--- NOTE | 2017-08-08 13:17 | DIAGNOSTIC IMAGING REPORT ---
KUB HISTORY: N20.0 [id number] COMPARISON: KUB 07/27/2017. FINDINGS: The bowel gas pattern is unremarkable. There are no dilated loops of small bowel to suggest an obstruction. Stable bilateral nephrolithiasis. No ureteral calculi identified. Multiple calcifications in the deep pelvis are also remain unchanged and therefore likely represent phleboliths. No pneumoperitoneum or pneumatosis. IMPRESSION: Stable bilateral nephrolithiasis. Electronically signed by: Mian Birmingham M.D. 08/08/2017 1:16 PM Dictated Date/Time: 08/08/2017 1:15 PM
== END | disposition home or self-care (01) ==
LOC: C.RAD1850 12:50
PROVIDERS: ATTEND Urology
DX: N20.0 Calculus of kidney (principal)

== ENCOUNTER → 2017-08-08 | Outpatient (CLI) | payer OTHER ==
[2017-08-08 18:23] LABS: BASO % 0.3 %; BASO ABS # 0.02 K/uL (0-0.2); COMPLETE YES; EOS % 3.2 %; HEMATOCRIT 38.6 % (37-47); IG% 0.1 %; LYMPH % 27.3 %; MEAN CELL VOLUME 83.9 fL (80-100); MEAN CORPUSCULAR HEMOGLOBIN 29.1 pg (25-34); MEAN CORPUSCULAR HGB CONC 34.7 g/dl (32-36); MEAN PLATELET VOLUME 10.3 fL (7.4-10.4); MONO % 8.7 %; NEUT % 60.4 %; PLATELET COUNT 197 K/uL (130-400)
[2017-08-08 18:31] LABS: BLOOD UREA NITROGEN 19 mg/dl (7-18); BUN/CREATININE RATIO 24.1 (10-20); CALCIUM 9.2 mg/dl (8.5-10.1); CARBON DIOXIDE 26 mmol/L (21-32); CHLORIDE 105 mmol/L (98-107); CREATININE 0.78 mg/dl (0.60-1.20); GLUCOSE 82 mg/dl (70-99); POTASSIUM 3.5 mmol/L (3.5-5.1); SODIUM 140 mmol/L (136-145)
[2017-08-08 18:37] LABS: URINE APPEARANCE CLOUDY (CLEAR); URINE BILIRUBIN NEG (NEG); URINE COLOR YELLOW; URINE EPITHELIAL CELL AUTO >30 /lpf (0-5); URINE NITRITE NEG (NEG); URINE SPECIFIC GRAVITY 1.022 (1.000-1.030); UROBILINOGEN NEG (NEG)
[2017-08-08 19:25] LABS: MANUAL MICROSCOPIC REQUIRED? NO; REVIEW REQ? NO
== END | disposition home or self-care (01) ==
LOC: C.LAB 16:32
PROVIDERS: ATTEND Urology
DX: N20.0 Calculus of kidney (principal)

== ENCOUNTER → 2017-08-17 | Outpatient (CLI) | payer OTHER ==
[~2017-08-17] MED LIST changes: -DIPH25TA24 PO; -ERGO500037 PO; -HYDR-3419 PO; -HYDR-5688 PO
--- NOTE | 2017-08-17 19:42 | DIAGNOSTIC IMAGING REPORT ---
KUB HISTORY: Nephrolithiasis follow-up study. N20.0 Nephrolithiasis COMPARISON: KUB 08/08/2017 FINDINGS: The bowel gas pattern is non-obstructive. There is no organomegaly. Bilateral nephrolithiasis redemonstrated with largest calculus on the right measuring up to 1.2 cm. No definite ureteral calculi identified. Multiple calcifications of the pelvis appear unchanged suggesting phleboliths. No pneumoperitoneum or pneumatosis. No fracture. There are degenerative changes of the lower lumbar spine. IMPRESSION: Stable bilateral nephrolithiasis. No definite ureteral calculi identified. Electronically signed by: Angel Luis Couch M.D. 08/17/2017 7:41 PM Dictated Date/Time: 08/17/2017 7:39 PM
== END | disposition home or self-care (01) ==
LOC: C.RAD 18:47
PROVIDERS: ATTEND Urology
DX: N20.0 Calculus of kidney (principal)

== ENCOUNTER → 2017-08-18 | Day surgery (SDC) | payer OTHER ==
[2017-08-11 10:42] VITALS: Ht 154.9 cm; Wt 90.9 kg
[~2017-08-18] VITALS: Ht 154.9 cm; Wt 90.9 kg
[~2017-08-18] MED LIST changes: +ATROPINE SULFATE 0.1 MG/ML 5ML SYR IV PRN; +CIPROFLOXACIN 400MG / D5W IV SCH; +EpHEDrine SULFATE 50MG/5ML SYR ONE; +EpHEDrine SULFATE INJ 50 MG/ML AMP IV PRN; +FENTANYL CITRATE INJ 50 MCG/1 ML 2 ML VIAL IV PRN; +FENTANYL CITRATE INJ 50 MCG/1 ML 2 ML VIAL ONE; +LACTATED RINGER'S 1000ML 1,000 ML IV SCH; +LIDOCAINE HCL 2% 2 ML VIAL (20MG/ML) ONE; +MIDAZOLAM HCL 1 MG/ML 2ML VIAL ONE; +ONDANSETRON INJ 2 MG/ML 2 ML VIAL IV PRN; +ONDANSETRON INJ 2 MG/ML 2 ML VIAL ONE; +PROPOFOL IV EMULSION 10 MG/ML 20 ML VIAL IV ONE
--- NOTE | 2017-08-18 09:22 | [facility] Post Operative Brief Note ---
Immediate Operative Summary Operative Date Aug 18, 2017. Pre-Operative Diagnosis Right Renal Stone Post-Operative Diagnosis Same Procedure(s) Performed Right Extracorporeal Shock Wave Lithotripsy Surgeon Dr. 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
--- NOTE | 2017-08-18 09:24 | Discharge Instructions-SurgCtr ---
Discharge Instructions Date of Service Aug 18, 2017. Visit Reason for Visit: Stones Discharge Discharge Diagnosis / Problem: post op r eswl Discharge Goals Goal(s): Decrease discomfort, Improve function, Improve disease control Medications Stopped Medications Name(s): asa 81mg daily, last dose 08/08/17 Activity Recommendations Activity Limitations: resume your previous activity Anesthesia . Post Anesthesia Instructions: If you have had General Anesthesia or IV Sedation: * Do not drive today. * Resume driving when surgeon permits. * Do not make important decisions or sign legal documents today. * Call surgeon for: 1. Temperature elevations greater than 101 degrees F. 2. Uncontrollable pain. 3. Excessive bleeding. 4. Persistent nausea and vomiting. 5. Medication intolerance (nausea, vomiting or rash). * For nausea and vomiting use only clear liquids such as: tea, soda, bouillon until nausea subsides, then gradually increase diet as tolerated. * If you have any concerns or questions, call your surgeon's office. If physician is unavailable and it is an emergency, call 911 or go to the nearest emergency room. . Diet Recommendations Home Diet: resume previous diet Procedures Procedures Performed: Right Extracorporeal Shock Wave Lithotripsy Pending Studies Studies pending at discharge: no Medical Emergencies . Who to Call and When: Medical Emergencies: If at any time you feel your situation is an emergency, please call 911 immediately. . Non-Emergent Contact Non-Emergency issues call your: Urologist Call Non-Emergent contact if: temperature is above 101 . . "Provider Documentation" section prepared by Galileo Person. .
[2017-08-18 10:01] VITALS: TEMP 36.4
--- NOTE | 2017-08-18 10:19 | Anesthesia Progress Nt - [facility] ---
Anesthesia Post Op Note Date & Time Aug 18, 2017 at 10:19 Vital Signs Pain Intensity: 0 Vital Signs Past 12 Hours Date Time Temp Pulse Resp B/P (MAP) Pulse Ox O2 Delivery O2 Flow Rate FiO2 08/18/17 10:01 36.4 70 20 124/84 (97) 96 Room Air 08/18/17 09:53 36.3 71 16 109/68 95 Room Air 08/18/17 09:52 74 21 95 08/18/17 09:52 75 21 08/18/17 09:51 102/69 08/18/17 09:47 68 4 99 08/18/17 09:47 67 4 08/18/17 09:46 111/70 08/18/17 09:42 69 15 08/18/17 09:42 69 15 99 08/18/17 09:41 68 8 111/66 99 08/18/17 09:41 69 8 08/18/17 09:36 71 4 107/62 99 08/18/17 09:36 72 4 08/18/17 09:32 115/66 08/18/17 09:31 36.5 80 12 115/66 97 Mask 6 08/18/17 09:31 76 4 08/18/17 09:31 78 4 99 08/18/17 07:17 36.7 82 16 141/95 (110) 95 Room Air Notes Mental Status: alert / awake / arousable, participated in evaluation Pt Amnestic to Procedure: Yes Nausea / Vomiting: adequately controlled Pain: adequately controlled Airway Patency, RR, SpO2: stable & adequate BP & HR: stable & adequate Hydration State: stable & adequate Anesthetic Complications: no major complications apparent
[2017-08-18 10:37] VITALS: BP 122/83; PULSE 68; O2SAT 97
--- NOTE | 2017-08-18 15:36 | OPERATIVE REPORT ---
DATE OF OPERATION: 08/18/2017 PREOPERATIVE DIAGNOSIS: Right renal stone. POSTOPERATIVE DIAGNOSIS: Same. PROCEDURE PERFORMED: Right renal ESWL. INDICATIONS FOR THE PROCEDURE: The patient is a 51-year-old female who previously had a lithotripsy for this right renal stone with some pieces having broken, but the stone was not completely fragmented. Is returning for a second attempt. DESCRIPTION OF THE PROCEDURE: She was given preoperative antibiotics and Venodyne stockings, taken to the operating room, given general anesthesia and received 2500 shocks, the majority at level 5. At the end of the procedure, there did appear to be some spreading out of the stone. She was transferred to the recovery room in stable condition. I attest to the content of the Intraoperative Record and any orders documented therein. Any exception s are noted below.
== END | disposition home or self-care (01) ==
LOC: X.SURG 06:59
PROVIDERS: ATTEND Urology
DX: N20.0 Calculus of kidney (principal); N39.3 Stress incontinence (female) (male); M79.7 Fibromyalgia; M10.9 Gout, unspecified; E66.9 Obesity, unspecified; Q61.3 Polycystic kidney, unspecified; Z87.891 Personal history of nicotine dependence; Z79.82 Long term (current) use of aspirin; Z82.3 Family history of stroke; Z82.49 Family history of ischemic heart disease and other diseases of the circulatory system; Z80.3 Family history of malignant neoplasm of breast

== ENCOUNTER → 2017-08-28 | Outpatient (CLI) | payer OTHER ==
[~2017-08-28] MED LIST changes: -ATROPINE SULFATE 0.1 MG/ML 5ML SYR IV PRN; -CIPROFLOXACIN 400MG / D5W IV SCH; -EpHEDrine SULFATE 50MG/5ML SYR ONE; -EpHEDrine SULFATE INJ 50 MG/ML AMP IV PRN; -FENTANYL CITRATE INJ 50 MCG/1 ML 2 ML VIAL IV PRN; -FENTANYL CITRATE INJ 50 MCG/1 ML 2 ML VIAL ONE; -LACTATED RINGER'S 1000ML 1,000 ML IV SCH; -LIDOCAINE HCL 2% 2 ML VIAL (20MG/ML) ONE; -MIDAZOLAM HCL 1 MG/ML 2ML VIAL ONE; -ONDANSETRON INJ 2 MG/ML 2 ML VIAL IV PRN; -ONDANSETRON INJ 2 MG/ML 2 ML VIAL ONE; -PROPOFOL IV EMULSION 10 MG/ML 20 ML VIAL IV ONE
--- NOTE | 2017-08-28 09:53 | DIAGNOSTIC IMAGING REPORT ---
KUB CLINICAL HISTORY: N20.0 [id number] Ureteral [id number] Stress inco COMPARISON STUDY: 08/17/2017 FINDINGS: There is a 1 cm right renal calculus. There are 2 left renal calculi the largest of which measures 3 mm. There is no pathologic bowel dilatation. No definite ureteral calculi are visualized. IMPRESSION: Bilateral nephrolithiasis. Electronically signed by: Cody Santos M.D. 08/28/2017 9:51 AM Dictated Date/Time: 08/28/2017 9:51 AM
== END | disposition home or self-care (01) ==
LOC: C.RAD1850 09:29
PROVIDERS: ATTEND Urology
DX: N20.0 Calculus of kidney (principal)

== ENCOUNTER → 2017-11-10 | Outpatient (CLI) | payer OTHER ==
[~2017-11-10] MED LIST changes: -AMLO-110 PO; +AMLO5TAB3 PO; -BND25 PO; +DIPH25CA5 PO; +RANI150T85 PO; -ZNTT/150 PO
[2017-11-10 18:13] LABS: POTASSIUM 3.5 mmol/L (3.5-5.1)
[2017-11-11 07:28] LABS: HEMOGLOBIN A1C 5.2 % (4.5-5.6)
== END | disposition home or self-care (01) ==
LOC: C.LABMFLN 11:09
PROVIDERS: ATTEND Nurse Practitioner Family
DX: I10 Essential (primary) hypertension (principal); R73.9 Hyperglycemia, unspecified; E87.6 Hypokalemia

== ENCOUNTER → 2017-12-18 | Outpatient (CLI) | payer OTHER ==
[~2017-12-18] MED LIST changes: +AMLO-110 PO; -AMLO5TAB3 PO
== END | disposition home or self-care (01) ==
LOC: C.MAMM 12:11
PROVIDERS: ATTEND Nurse Practitioner Family
DX: Z00.00 Encounter for general adult medical examination without abnormal findings (principal); Z87.81 Personal history of (healed) traumatic fracture

== ENCOUNTER → 2018-02-09 | Outpatient (CLI) | payer OTHER ==
[2018-02-09 17:57] LABS: PTT PATIENT 25.9 SECONDS (21.0-31.0)
[2018-02-09 18:06] LABS: BASO % 0.1 %; BASO ABS # 0.01 K/uL (0-0.2); EOS % 1.7 %; EOS ABS # 0.16 K/uL (0-0.5); HEMATOCRIT 37.2 % (37-47); HEMOGLOBIN 13.1 g/dL (12.0-16.0); IG# 0.03 K/uL (0.00-0.02); LYMPH % 13.9 %; LYMPH ABS # 1.32 K/uL (1.2-3.4); MEAN CELL VOLUME 84.4 fL (80-100); MEAN CORPUSCULAR HEMOGLOBIN 29.7 pg (25-34); MEAN CORPUSCULAR HGB CONC 35.2 g/dl (32-36); MEAN PLATELET VOLUME 9.6 fL (7.4-10.4); MONO % 7.5 %; MONO ABS # 0.71 K/uL (0.11-0.59); NEUT % 76.5 %; NEUT ABS # 7.27 K/uL (1.4-6.5); PLATELET COUNT 217 K/uL (130-400); RED CELL DISTRIBUTION WIDTH CV 13.8 % (11.5-14.5); RED CELL DISTRIBUTION WIDTH SD 42.5 fL (36.4-46.3)
[2018-02-09 18:19] LABS: ALBUMIN 3.6 gm/dl (3.4-5.0); TOTAL PROTEIN 7.4 gm/dl (6.4-8.2)
== END | disposition home or self-care (01) ==
LOC: C.LABPVFM 14:06
PROVIDERS: ATTEND Family Medicine
DX: R21 Rash and other nonspecific skin eruption (principal)

== ENCOUNTER → 2018-03-09 | Outpatient (CLI) | payer OTHER ==
[~2018-03-09] MED LIST changes: -OXYC-57 PO
== END | disposition home or self-care (01) ==
LOC: C.LABPVFM 13:37
PROVIDERS: ATTEND Nurse Practitioner
DX: J02.9 Acute pharyngitis, unspecified (principal)

== ENCOUNTER → 2018-03-16 | Outpatient (CLI) | payer OTHER ==
--- NOTE | 2018-03-16 12:15 | DIAGNOSTIC IMAGING REPORT ---
RIGHT KNEE 3 VIEWS CLINICAL HISTORY: Right knee pain. FINDINGS: AP, lateral, and sunrise views of the right knee are obtained. No prior studies are available for comparison at the time of dictation. The skeletal structures are osteopenic. No fracture is seen. There is mild to moderate tricompartmental degenerative joint space narrowing, greatest at the patellofemoral articulation. There are patellar enthesophytes and large marginal osteophytes. A calcified fabella is incidentally noted. There is an additional 2.0 cm calcification posterior to the knee which may be located within a popliteal cyst. There is no large joint effusion. The overlying soft tissues are within normal limits. IMPRESSION: Osteopenia and degenerative change as above. Electronically signed by: Jeffery Palma M.D. 03/16/2018 12:13 PM Dictated Date/Time: 03/16/2018 12:12 PM
== END | disposition home or self-care (01) ==
LOC: C.LABPVFM 11:48
PROVIDERS: ATTEND Nurse Practitioner Family
DX: M25.561 Pain in right knee (principal)